=== PATIENT | male | born 1940 | race Caucasian/White ===

== ENCOUNTER 2020-12-10 06:23 | Day surgery (SDC) | payer MEDICARE, OTHER ==
[2020-12-09 12:47] VITALS: BMI 28.3
[2020-12-10 10:10] VITALS: BP 138/73; TEMP 98.4
--- NOTE | 2020-12-10 10:54 | CT ---
CERVICAL SPINE CT MYELOGRAM: DATE: 12/10/2020. HISTORY: Radiculopathy, cervical spondylosis, pain. TECHNIQUE: Following the intrathecal administration of contrast media, axial CT imaging at 2.5 mm intervals from the skull base through the lung apices. Coronal and sagittal reformatted imaging obtained. FINDINGS: The imaged lung apices demonstrate no acute findings. There is moderate degenerative change at the atlantoaxial interspace with posterior pseudopannus form ation. There is prominent degenerative change at the C1-2 articulation on the left with subcortical cystic c hange involving the inferior aspect of the lateral mass of C1 on the left and the left aspect of the C2 vertebral body. C2-3: There is mild anterolisthesis at C2-3 measuring in the 4 mm range. Bilateral facet hypertrophy is noted, especially on the left. There is an anterior left-sided defect in the contrast column consistent with a space occupying mass which is inseparable from the anterior exiting nerve root. It is also inseparable from the adjacent facet joint which demonstrates prominent hypertrophic change and osteophyte formation. This lesion measures 6 mm in AP dimension and is just inferior and medial t o the left neural foramen. This is best seen on axial image 24. No significant central canal stenosis. Facet and uncovertebral osteophyte formation leads to mild/moderate left neural foraminal s tenosis. No right neural foraminal stenosis. C3-4: There is disc space narrowing with degenerative endplate change. There is bilateral facet and u ncovertebral osteophyte formation with prominent anterior osteophyte as well. No significant central canal stenosis. Posterior disc osteophyte complex present with partial effacement of the vent ral thecal sac. Moderate/severe right neural foraminal stenosis and mild left neural foraminal stenosis C4-5: There is disc space narrowing with degenerative endplate change, anterior osteophyte formation, and a disc osteophyte complex partially effacing the ventral thecal sac and leading to a mild/moderate degree of central canal stenosis. Bilateral facet and uncovertebral osteophyte formatio n, right greater than left, with moderate/severe bilateral neural foraminal stenosis. C5-6: There is degenerative endplate change with disc space narrowing, anterior osteophyte formation, and a disc osteophyte complex. Partial effacement of the ventral thecal sac with mild central canal stenosis. Moderate/severe bilateral neural foraminal stenosis, right greater than left, on the basis of bilateral facet and uncovertebral osteophyte formation. C6-7: Facet and uncovertebral osteophyte formation noted bilaterally with mild right and moderate/sev ere left neural foraminal stenosis. Mild central canal stenosis. C7-T1: Facet hypertrophy on the right leads to moderate right neural foraminal stenosis. No central c anal or left neural foraminal stenosis. No prevertebral soft tissue swelling. No lytic or blastic bone lesion. No acute fracture or dislocati on. There is atherosclerotic calcification involving the distal right CCA and the bilateral proximal ICA. IMPRESSION: 6 mm abnormality involving the anterior lateral aspect of the central canal on the left at C2-3. This may represent a neurogenic tumor, such as a schwannoma. Given the immediately adjacent markedly hypertrophic facet joint it is conceivable that this could be related to hypertrophic synovium and or a small synovial cyst. Short-term follow-up imaging is suggested. If the patient's stimulating device is compatible with MRI, contrast-enhanced MRI would be beneficial. Otherwise, follow-up CT sug gested. Multilevel cervical spine degenerative change. Study evaluated in consultation with Dr. Barreto. Results were evaluated 6 mm lesion in the anterior lateral aspect of the right. Transcribed Date/Time: 12/10/2020 11:59 AM
[2020-12-10] MEDS ORDERED: Iopamidol-M 300 61% 15 ML VIAL ONE (12:07)
[2020-12-10] MEDS ORDERED: FLU VACC QS2020-21(65YR UP)/PF 240 MCG/0.7 ML SYRINGE IM ONE (13:00)
--- NOTE | 2020-12-10 15:29 | RAD ---
Cervical myelogram HISTORY: Neck pain with radiculopathy. FINDINGS: After explaining this procedure and answering all questions, the posterior aspect of lower back was prepped and draped in usual sterile fashion. Sterile technique, buffered local anesthesia, fluoroscopic guidance, and a posterior L1-2 approach we re used to carefully advance the tip of a 22-gauge spinal needle to the thecal sac. Approximately 8 cc of Isovue 300 M contrast was carefully instilled into the thecal sac under fluoroscopic control. 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 Patient was repositioned to move contrast to the cervical spine. Patient tolerated the procedure well and was eventually dismissed in good condition. IMPRESSION : Technically successful cervical myelogram. CT is pending.
== END 2020-12-10 10:00 | disposition home or self-care (01) ==
LOC: RAD 06:23
PROVIDERS: ATTEND Neurological Surgery
PROC: B02B1ZZ Computerized Tomography (CT Scan) of Spinal Cord using Low Osmolar Contrast (ICD-10-PCS; principal; 2020-12-10)
DX: M47.22 Other spondylosis with radiculopathy, cervical region (principal); M48.02 Spinal stenosis, cervical region; I65.23 Occlusion and stenosis of bilateral carotid arteries; M19.90 Unspecified osteoarthritis, unspecified site; J45.909 Unspecified asthma, uncomplicated; M10.9 Gout, unspecified; I10 Essential (primary) hypertension; K21.9 Gastro-esophageal reflux disease without esophagitis; E78.5 Hyperlipidemia, unspecified; G89.29 Other chronic pain; Z87.891 Personal history of nicotine dependence; Z79.1 Long term (current) use of non-steroidal anti-inflammatories (NSAID); Z79.82 Long term (current) use of aspirin; Z79.899 Other long term (current) drug therapy; Z95.5 Presence of coronary angioplasty implant and graft
CPT/HCPCS: 62302; 72126; 90471; 90662; G0008; Q9967

== ENCOUNTER 2022-08-31 09:51 | Day surgery (SDC) | payer OTHER ==
[2022-08-30 12:35] VITALS: BMI 21.2
[2022-08-31] MEDS ORDERED: fentaNYL PF 100 MCG/2 ML SYRINGE ONE (10:54)
[2022-08-31] MEDS ORDERED: Lidocaine 1% PF 5 ML VIAL ONE (11:33)
[2022-08-31] MEDS ORDERED: Neomycin-Polymyxin 1 ML AMP ONE (11:34)
[2022-08-31] MEDS ORDERED: Bupivacaine HCl 0.5%/Epinephrine 1:200,000/PF 30 ml Vial ONE (11:34)
[2022-08-31] MEDS ORDERED: CEFAZOLIN 2 GM VIAL ONE (11:43)
[2022-08-31] MEDS ORDERED: Sodium Chloride 0.9% 100 ML ONE (11:43)
[2022-08-31 11:59] LABS: #Eosinphils 0.2 thou/uL (0.0-0.7); #Lymphocytes 1.5 thou/uL (1.20-3.40); #Monocytes 0.4 thou/uL (0.11-0.59); %Basophils 0.3 % (0.0-1.0); %Eosinophils 5.5 % (0.0-10.0); %Lymphocytes 35.6 % (21.0-51.0); %Neutrophils 48.6 % (42.0-75.0); Mean Corpuscular HGB CONC 33.7 g/dL (32.0-36.0); Mean Corpuscular Hemoglobin 31.7 pg (27.0-31.0); Mean Corpuscular Volume 93.9 fl (78.0-98.0); Platelet Count 172 10x3/uL (130-400); RBC Distribution Width 12.8 % (11.5-14.5); Red Blood Cell (RBC) Count 4.12 mill/uL (4.70-6.10); White Blood Cell (WBC) Count 4.2 10x3/uL (4.8-10.8)
[2022-08-31] MEDS ORDERED: PROPOFOL 200 MG/20 ML VIAL ONE (12:03)
[2022-08-31] MEDS ORDERED: Ondansetron PF 4 MG/2 ML Vial ONE (12:03)
[2022-08-31] MEDS ORDERED: PHENYLEPHRINE-NS 100 MCG/ML 10 ML SYRINGE ONE (12:03)
[2022-08-31] MEDS ORDERED: Dexamethasone 20 MG/5 ML VIAL ONE (12:03)
[2022-08-31] MEDS ORDERED: Ketorolac Tromethamine 30 MG/ML VIAL ONE (12:03)
[2022-08-31] MEDS ORDERED: ePHEDrine 50 MG/ML VIAL ONE (12:03)
[2022-08-31 12:14] LABS: PTT 33.7 sec (22.9-36.1); Prothrombin Time 13.8 sec (12.0-14.7)
[2022-08-31 12:30] LABS: Anion Gap 12 mmol/L (10-20); BUN (Urea Nitrogen) 18 mg/dL (8.4-25.7); Calc. Creatinine Clearance 41 mL/min (70-130); Calcium 8.5 mg/dL (7.8-10.44); Carbon Dioxide 25 mmol/L (23-31); Chloride 105 mmol/L (98-107); Estimated GFR 57; Glucose 91 mg/dL (83-110); Potassium 3.5 mmol/L (3.5-5.1); Sodium 138 mmol/L (136-145)
[2022-08-31] MEDS ORDERED: FENTANYL 50 MCG/ML 1 ML VIAL ONE (14:08)
== END 2022-08-31 15:37 | disposition home or self-care (01) ==
LOC: SDC 09:51
PROVIDERS: ATTEND Neurological Surgery
PROC: 01N40ZZ Release Ulnar Nerve, Open Approach (ICD-10-PCS; principal; 2022-08-31)
PROC: 01N50ZZ Release Median Nerve, Open Approach (ICD-10-PCS; principal; 2022-08-31)
DX: G56.21 Lesion of ulnar nerve, right upper limb (principal); G56.01 Carpal tunnel syndrome, right upper limb; M50.11 Cervical disc disorder with radiculopathy, high cervical region; M48.02 Spinal stenosis, cervical region; M19.90 Unspecified osteoarthritis, unspecified site; G89.29 Other chronic pain; M10.9 Gout, unspecified; E78.00 Pure hypercholesterolemia, unspecified; I10 Essential (primary) hypertension; F17.200 Nicotine dependence, unspecified, uncomplicated; Z79.1 Long term (current) use of non-steroidal anti-inflammatories (NSAID); Z79.82 Long term (current) use of aspirin; Z79.899 Other long term (current) drug therapy; Z95.5 Presence of coronary angioplasty implant and graft; Z96.82 Presence of neurostimulator
CPT/HCPCS: 36415; 80048; 85025; 85610; 85730; 93005; 93010; J1100; J1885; J2405; J2704; J3010; J3490